=== PATIENT | male | born 1950 | race Caucasian/White ===

== ENCOUNTER → 2016-02-23 | Day surgery (SDC) | payer MEDICARE, BC ==
--- NOTE | 2016-02-22 15:54 | Opthalmology H&P ---
Ophthalmology H&P H&P Chief Complaint: decreased vision in right eye HPI Vision Affects Ability to: read, watch TV, drive Past Ocular History: glaucoma HPI Narrative 65 y/o Male with narrow angle glaucoma due to large cataract. Exam Visual Acuity: 20/25 decrease to 20/40 with BAT Eye Exam: normal OU: corneas, findings: anterior chambers - shallow, external exam, fundus exam - C/D 0.8, 0.85, lens - 1+ NSC, 1+ CC Assessment/Plan Treatment Plan: cataract extraction w/ lens implant Goals of Treatment: lowering of intraocular pressure, enhance quality of life Attestation Attestation The risks and benefits of the surgery as well as alternative procedures were explained to the patient in detail. Pam Campos M.D. Feb 22, 2016 15:54
--- NOTE | 2016-02-22 15:55 | Pre-Procedure Note/Attestation ---
Pre-Procedure Note/Attestation Complete Prior to Procedure Planned Procedure: right Procedure Narrative: Cataract extraction with IOL implantation Indications for Procedure Pre-Operative Diagnosis: Uncontrolled Narrow angle glaucoma Attestation I attest that I discussed the nature of the procedure; its benefits; risks and complications; and alternatives (and the risks and benefits of such alternatives ), prior to the procedure, with the patient (or the patient's legal quality audit representative). I attest that, if there was a reasonable possibility of needing a blood transfusion, the patient (or the patient's legal quality audit representative) was given the [facility] standardized written summary, pursuant to the Micah [place] Blood Safety Act ([place] Health and Safety Code # 1645, as amended). I attest that I re-evaluated the patient just prior to the surgery and that there has been no change in the patient's H&P, except as documented below: Pam Campos M.D. Feb 22, 2016 15:55
[2016-02-23] VITALS (7 sets, daily range): BP systolic 122–136; BP diastolic 78–91
[~2016-02-23] VITALS: Ht 182.9 cm; Wt 95.3 kg
[~2016-02-23] MED LIST: ASPIR 8181 MG ORAL; ASPIRIN81 MG ORAL; Akten 3.5% 1ml Btl ONE; BIOTIN10000 MCG PO; BSS 15ml BTL ONE; BSS 500ml btl ONE; CRESTOR10 M2 ORAL; Diclofenac Sod 0.1% Op Soln ONE; DiphenhydrAMINE 50mg/ml Inj IVP PRN; EPINEPHrine 1mg/1ml Amp ONE; Gatifloxacin Opth Solution 0.5% ONE; Healon Duet Dual Pack ONE; LR 1000ml 1,000 ML IVLG SCH; LR 1000ml ONE; Lidocaine 4% Amp ONE; METFORMIN HCL500 M1 ORAL; Meperidine 25mg/ml Inj IV PRN; Midazolam 2mg/2ml Inj ONE; NS Irrig 1000ml ONE; OMEPRAZOLE20 M2 ORAL; OMEPRAZOLE40 M1 ORAL; PROTONIX40 MG ORAL; Phenylephrine 10% Opth Soln 5ml ONE; Povidone-Iodine 5% opth solution ONE; Propofol 10mg/ml 20ml IV ONE; Sterile Water Irrig 1000ml IRRIG ONE; Tropicamide 1% Opth Soln ONE; acetaZOLAMIDE 125mg tab ORAL ONE; fentaNYL 100 mcg/2 mL IV ONE
[2016-02-23] MEDS: Akten 3.5% 1ml Btl RIGHT EYE SCH ×3 (07:27→07:50)
[2016-02-23] MEDS: Gatifloxacin Opth Solution 0.5% RIGHT EYE SCH ×3 (07:27→07:50)
[2016-02-23] MEDS: Tropicamide 1% Opth Soln RIGHT EYE SCH ×3 (07:27→07:51)
[2016-02-23] MEDS: Phenylephrine 10% Opth Soln 5ml RIGHT EYE SCH ×3 (07:27→07:51)
[2016-02-23] MEDS: Diclofenac Sod 0.1% Op Soln RIGHT EYE SCH ×3 (07:27→07:50)
--- NOTE | 2016-02-23 09:01 | Anethesia Preoperative Eval ---
Anesthesia Pre-op PMH/ROS General Date of Evaluation: Feb 23, 2016 Time of Evaluation: 08:28 Anesthesiologist: Hawa ASA Score: ASA 2 Mallampati Score Class I : Soft palate, uvula, fauces, pillars visible Class II: Soft palate, uvula, fauces visible Class III: Soft palate, base of uvula visible Class IV: Only hard plate visible Mallampati Classification: Class II Surgeon: Andres Diagnosis: R eye cataract Surgical Procedure: R eye cataract extraction Anesthesia History: none Social History: drug use - canabis Allergies: Coded Allergies: TETRACYCLINES (Verified Allergy, Severe, unkown, 06/09/15) Medications: see eMAR Past Medical History Cardiovascular: Reports: HTN - borderline, Denies: CAD, [place], arrhythmia, other, valve dz Pulmonary: Denies: COPD, OSWALD, asthma, other Gastrointestinal/Genitourinary: Reports: GERD, other - prostate CA s/p Sx, Denies: CRI, ESRD Neurologic/Psychiatric: Reports: depression/anxiety, Denies: CVA, TIA, dementia, other Endocrine: Reports: DM - on pills, Denies: hypothyroidism, other, steroids HEENT: Reports: cataract (L), cataract (R), Denies: [place] (L), [place] (R), glaucoma, other Hematology/Immune: Denies: DVT, anemia, bleeding disorder, other Musculoskeletal/Integumentary: Denies: DDD, DJD, OA, RA, edema, other Other: other - overweight PMH Narrative: as above PSxH Narrative: Radical prostatectomy Anesthesia Pre-op Phys. Exam Physician Exam Last Vital Signs Date Time Temp Pulse Resp B/P Pulse Ox O2 Delivery O2 Flow Rate FiO2 02/23/16 07:48 98.0 78 17 136/78 98 Room Air Constitutional: NAD Neurologic: CN 2-12 intact Cardiovascular: RRR, no M/R/G Respiratory: CTA Gastrointestinal: S/NT/ND Airway Exam Mallampati Score: Class II MO: full Neck: flexible ROM: full Teeth: intact Dentures: no lower, no upper Anesthesia Pre-op A/P Labs see chart Studies Pre-op Studies: EKG Risk Assessment & Plan Assessment: ASA 2 Plan: MAC Status Change Before Surgery: No Pre-Antibiotics Drug: none TONE DAMICO M.D. Feb 23, 2016 09:01
--- NOTE | 2016-02-23 09:28 | Operative Note - PDOC ---
Operative Note Operative Note Date of Operation/Procedure: Feb 23, 2016 Chief Complaint: blurred vision, uncontrolled IOP Pre-op Diagnosis: Uncontrolled Narrow angle glaucoma Procedure: Complex cataract extraction and IOL insertion Post-op Diagnosis: The same Post-op Diagnosis: same as pre-op Operative Findings: consistent w/pre-op dx studies Surgeon: Dr. Pam Campos Anesthesiologist: Dr. Medina Anesthesia: MAC Specimen: none Complications: none Condition: stable Estimated Blood Loss: none Drains: none Implant(s) used?: Yes - ZCBOO + 20.00 Indications for Procedure Narrow angle, cataract Description of Procedure See the operative note Pam Campos M.D. Feb 23, 2016 09:28
--- NOTE | 2016-02-23 09:30 | Discharge Summary ---
Discharge Summary Hospital Course Date of Admission 02/23/16 Date of Discharge 02/23/16 Admitting Diagnosis Narrow angle glaucoma, Cortical cataract HPI Mathew Estrella is a 65 year old male who was admitted on for uncontrolled narrow angle glaucoma and Cat Rt Eye Procedures Cataract extraction and IOL insertion Hospital Course No issue Discharge Condition Upon Discharge: stable Discharge Disposition Patient was discharged to home Discharge Diagnoses: Pam Campos M.D. Feb 23, 2016 09:30
--- NOTE | 2016-02-23 09:52 | Immediate Post-Op Evaluation ---
Immediate Post-Op Evalulation Immediate Post-Op Evalulation Procedure: R eye cataract extraction with IOL Date of Evaluation: Feb 23, 2016 Time of Evaluation: 09:25 IV Fluids: 200 Blood Products: none Estimated Blood Loss: none Urinary Output: none Blood Pressure Systolic: 132 Blood Pressure Diastolic: 56 Pulse Rate: 72 Respiratory Rate: 20 O2 Sat by Pulse Oximetry: 99 Temperature (Fahrenheit): 97.4 Pain Score (1-10): 1 Nausea: No Vomiting: No Complications none Patient Status: awake, patent, none Hydration Status: adequate TONE DAMICO M.D. Feb 23, 2016 09:52
--- NOTE | 2016-02-23 10:52 | 48 Hour Post Anesthesia Eval ---
Post Anesthesia Evaluation Procedure: R eye cataract extraction with IOL Date of Evaluation: Feb 23, 2016 Time of Evaluation: 10:50 Blood Pressure Systolic: 148 0: 69 Pulse Rate: 72 Respiratory Rate: 21 Temperature (Fahrenheit): 97.5 O2 Sat by Pulse Oximetry: 99 Airway: patent Nausea: No Vomiting: No Pain Intensity: 1 Hydration Status: adequate Cardiopulmonary Status: stable Mental Status/LOC: patient returned to baseline Follow-up Care/Observations: n/a Post-Anesthesia Complications: none Follow-up care needed: ready to discharge TONE DAMICO M.D. Feb 23, 2016 10:52
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
== END | disposition home or self-care (01) ==
LOC: SUR 07:08
DX: H25.11 Age-related nuclear cataract, right eye (principal); H25.011 Cortical age-related cataract, right eye; H40.20X0 Unspecified primary angle-closure glaucoma, stage unspecified; H21.81 Floppy iris syndrome; E11.9 Type 2 diabetes mellitus without complications; Z79.84 Long term (current) use of oral hypoglycemic drugs; K21.9 Gastro-esophageal reflux disease without esophagitis; I10 Essential (primary) hypertension; F32.9 Major depressive disorder, single episode, unspecified; F41.9 Anxiety disorder, unspecified; E78.5 Hyperlipidemia, unspecified; E66.3 Overweight; Z88.1 Allergy status to other antibiotic agents; Z88.3 Allergy status to other anti-infective agents; Z85.46 Personal history of malignant neoplasm of prostate; Z90.79 Acquired absence of other genital organ(s)
CPT/HCPCS: 66984; 82962; J0171; J2250; J2704; J3010; J7120; V2632; 94003; 94150

== ENCOUNTER → 2016-03-08 | Day surgery (SDC) | payer MEDICARE, BC ==
--- NOTE | 2016-03-07 18:50 | Opthalmology H&P ---
Ophthalmology H&P H&P Chief Complaint: decreased vision in left eye HPI Vision Affects Ability to: read, drive Past Ocular History: allergies to medications - Amoxicillin, Tetracyclin HPI Narrative The patient is 65 y/o Male with painless progressive vision loss with difficulty in reading and driving due to visually significant cataract left eye. Exam Visual Acuity: 20/60 Tension: 22 Eye Exam: normal OU: anterior chambers, corneas, external exam, fundus exam, findings: lens - PCIOL OD, 2+ CC, 2+ NSC Assessment/Plan Treatment Plan: cataract extraction w/ lens implant Goals of Treatment: improvement of vision, lowering of intraocular pressure Attestation Attestation The risks and benefits of the surgery as well as alternative procedures were explained to the patient in detail. Pam Campos M.D. Mar 07, 2016 18:50
--- NOTE | 2016-03-07 18:51 | Pre-Procedure Note/Attestation ---
Pre-Procedure Note/Attestation Complete Prior to Procedure Planned Procedure: left Procedure Narrative: Cataract extraction with IOL insertion Indications for Procedure Pre-Operative Diagnosis: Visually significant cataract, left eye Attestation I attest that I discussed the nature of the procedure; its benefits; risks and complications; and alternatives (and the risks and benefits of such alternatives ), prior to the procedure, with the patient (or the patient's legal statement services representative). I attest that, if there was a reasonable possibility of needing a blood transfusion, the patient (or the patient's legal statement services representative) was given the [facility] standardized written summary, pursuant to the Micah [place]ai Blood Safety Act ([place] Health and Safety Code # 1645, as amended). I attest that I re-evaluated the patient just prior to the surgery and that there has been no change in the patient's H&P, except as documented below: Pam Campos M.D. Mar 07, 2016 18:51
[~2016-03-08] VITALS: Ht 182.9 cm; Wt 95.3 kg
[2016-03-08] VITALS (9 sets, daily range): BP systolic 111–129; BP diastolic 63–87
[~2016-03-08] MED LIST changes: +Labetalol 5mg/ml 20ml vial IV PRN; +Lidocaine 1% MPF 10mg/ml 5ml ONE; +Maxitrol Opth Oint 3.5gm ONE; -Meperidine 25mg/ml Inj IV PRN; -Propofol 10mg/ml 20ml IV ONE; +Tetracaine 0.5% Opth Soln ONE; +Timolol 0.5% Op Soln 2.5ml ONE; +Tobradex Opth Susp 2.5ml ONE; -Tropicamide 1% Opth Soln ONE
[2016-03-08] MEDS: Gatifloxacin Opth Solution 0.5% LEFT EYE SCH ×3 (06:37→07:02)
[2016-03-08] MEDS: Tobradex Opth Susp 2.5ml LEFT EYE SCH ×3 (06:37→07:02)
[2016-03-08] MEDS: Diclofenac Sod 0.1% Op Soln LEFT EYE SCH ×3 (06:38→07:02)
[2016-03-08] MEDS: Akten 3.5% 1ml Btl LEFT EYE SCH ×3 (06:38→07:02)
[2016-03-08] MEDS: Phenylephrine 10% Opth Soln 5ml LEFT EYE SCH ×3 (06:38→07:03)
--- NOTE | 2016-03-08 08:01 | Anethesia Preoperative Eval ---
Anesthesia Pre-op PMH/ROS General Date of Evaluation: Mar 08, 2016 Anesthesiologist: Remy ASA Score: ASA 3 Mallampati Score Class I : Soft palate, uvula, fauces, pillars visible Class II: Soft palate, uvula, fauces visible Class III: Soft palate, base of uvula visible Class IV: Only hard plate visible Mallampati Classification: Class II Surgeon: Andres Diagnosis: Left cataract Surgical Procedure: Left cataract extraction with IOl Anesthesia History: none Family History: no anesthesia problems Allergies: Coded Allergies: TETRACYCLINES (Verified Allergy, Severe, unkown, 06/09/15) Medications: see eMAR Past Medical History Cardiovascular: Reports: other - HLD, Denies: CAD, HTN, [place], arrhythmia, valve dz Pulmonary: Denies: COPD, OSWALD, asthma, other Gastrointestinal/Genitourinary: Reports: GERD, other - prostate Cancer, kidney stones, Denies: CRI, ESRD Neurologic/Psychiatric: Denies: CVA, TIA, dementia, depression/anxiety, other Endocrine: Reports: DM, Denies: hypothyroidism, other, steroids HEENT: Denies: [place] (L), [place] (R), cataract (L), cataract (R), glaucoma, other Hematology/Immune: Reports: anemia, Denies: DVT, bleeding disorder, other Musculoskeletal/Integumentary: Reports: OA, Denies: DDD, DJD, RA, edema, other Other: obesity PSxH Narrative: T&A, ex-lap, prostatectomy, hemorrhoid sx, right cataract sx, left retina repair Anesthesia Pre-op Phys. Exam Physician Exam Last Vital Signs Date Time Temp Pulse Resp B/P Pulse Ox O2 Delivery O2 Flow Rate FiO2 03/08/16 06:43 98.1 72 18 125/87 97 Room Air Constitutional: NAD Cardiovascular: RRR Respiratory: CTA Airway Exam Mallampati Score: Class II MO: full ROM: full Anesthesia Pre-op A/P Labs see chart Studies Pre-op Studies: EKG - sr Risk Assessment & Plan Assessment: ASA III Plan: MAC Status Change Before Surgery: No Pre-Antibiotics Drug: N/A YOVANNY SANCHEZ M.D. Mar 08, 2016 08:01
--- NOTE | 2016-03-08 08:51 | Immediate Post-Op Evaluation ---
Immediate Post-Op Evalulation Immediate Post-Op Evalulation Procedure: Left cataract extraction with IOL Date of Evaluation: Mar 08, 2016 Time of Evaluation: 09:24 IV Fluids: 300 Blood Products: 0 Estimated Blood Loss: 0 Urinary Output: 0 Blood Pressure Systolic: 122 Blood Pressure Diastolic: 83 Pulse Rate: 73 Respiratory Rate: 17 O2 Sat by Pulse Oximetry: 99 Temperature (Fahrenheit): 97.4 Pain Score (1-10): 0 Nausea: No Vomiting: No Complications 0 Patient Status: awake, reacts, patent, none Hydration Status: adequate Drug: N/A YOVANNY SANCHEZ M.D. Mar 08, 2016 08:51
--- NOTE | 2016-03-08 08:52 | 48 Hour Post Anesthesia Eval ---
Post Anesthesia Evaluation Procedure: Left cataract extraction with IOL Date of Evaluation: Mar 08, 2016 Blood Pressure Systolic: 129 0: 82 Pulse Rate: 68 Respiratory Rate: 16 O2 Sat by Pulse Oximetry: 98 Airway: patent Nausea: No Vomiting: No Pain Intensity: 0 Hydration Status: adequate Cardiopulmonary Status: at baseline Mental Status/LOC: patient returned to baseline Post-Anesthesia Complications: 0 Follow-up care needed: ready to discharge YOVANNY SANCHEZ M.D. Mar 08, 2016 08:52
--- NOTE | 2016-03-08 09:25 | Operative Note - PDOC ---
Operative Note Operative Note Date of Operation/Procedure: Mar 08, 2016 Chief Complaint: blurry vision, difficulty driving and reading Pre-op Diagnosis: Visually significant cataract, left eye Procedure: Cataract extraction and IOl insertion Post-op Diagnosis: same as pre-op Operative Findings: consistent w/pre-op dx studies Surgeon: Dr. Pam Campos Anesthesiologist: Dr. Summers Anesthesia: MAC Specimen: none Complications: none Condition: stable Estimated Blood Loss: none Drains: none Implant(s) used?: Yes - PCIOl ZCBOO +20.50 Indications for Procedure Visually significant cataract Description of Procedure see the separate op note Pam Campos M.D. Mar 08, 2016 09:25
--- NOTE | 2016-03-08 09:29 | Discharge Summary ---
Discharge Summary Hospital Course Date of Admission 03/08/16 Date of Discharge 03/08/16 Admitting Diagnosis Visually significant cataract Floppy Iris syndrome HPI Mathew Estrella is a 65 year old male who was admitted on for Cat Lt Eye Procedures Complex Cataract extraction and IOL insertion Hospital Course Uneventful Discharge Condition Upon Discharge: stable Discharge Disposition Patient was discharged to home Discharge Diagnoses: Discharge Instructions Discharge Instructions Follow up with: Dr. Campos the next day Call MD/Return to Hospital if: Severe pain Services Upon Discharge: other Diet: regular Activity: light activity - No bending, No straining, No heavy lifting. Keep the patch over the eye For Surgical Patients Clean and Dry: surgical site Dressing Care: keep dry and clean May shower: No Contact your physician for: Pam Chacon M.D. Mar 08, 2016 09:29
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
== END | disposition home or self-care (01) ==
LOC: SUR 06:16
DX: H25.12 Age-related nuclear cataract, left eye (principal); H25.012 Cortical age-related cataract, left eye; H57.03 Miosis; H21.81 Floppy iris syndrome; H35.3120 Nonexudative age-related macular degeneration, left eye, stage unspecified; E11.9 Type 2 diabetes mellitus without complications; Z79.84 Long term (current) use of oral hypoglycemic drugs; E66.9 Obesity, unspecified; E78.00 Pure hypercholesterolemia, unspecified; K21.9 Gastro-esophageal reflux disease without esophagitis; M19.90 Unspecified osteoarthritis, unspecified site; D64.9 Anemia, unspecified; Z85.46 Personal history of malignant neoplasm of prostate; Z90.79 Acquired absence of other genital organ(s); Z87.442 Personal history of urinary calculi; Z79.899 Other long term (current) drug therapy; Z88.1 Allergy status to other antibiotic agents; Z88.3 Allergy status to other anti-infective agents
CPT/HCPCS: 66984; 82962; J0171; J1200; J2250; J3010; J7120; V2632; 94003; 94150